=== PATIENT | male | born 1960 | race Caucasian/White ===

== ENCOUNTER 2019-02-19 09:59 | Emergency (ER) | payer OTHER, BC ==
[~2019-02-19] VITALS: Ht 172.7 cm; Wt 76.4 kg
[~2019-02-19 09:59] MED LIST: ASPI-1265 PO; FLO0.4C PO; OMEP40CA37 PO; TRAM50TA2 PO
[2019-02-19] MEDS ORDERED: LIDOcaine 1% 30ml preserv. free vial IJ ONE (11:35)
[2019-02-19 12:09] VITALS: BP 137/75
== END 2019-02-19 12:10 | disposition home or self-care (01) ==
LOC: ER 09:59
DX: S61.213A Laceration without foreign body of left middle finger without damage to nail, initial encounter (principal); Z85.46 Personal history of malignant neoplasm of prostate; Z98.890 Other specified postprocedural states; Z79.82 Long term (current) use of aspirin; Z79.899 Other long term (current) drug therapy; W26.8XXA Contact with other sharp object(s), not elsewhere classified, initial encounter; Y93.89 Activity, other specified; Y92.89 Other specified places as the place of occurrence of the external cause; Y99.8 Other external cause status
CPT/HCPCS: 12001; 99283; J3490

== ENCOUNTER 2021-01-12 15:16 | Inpatient (IN) | payer BC, MEDICAID, OTHER ==
[~2021-01-12] VITALS: Ht 172.7 cm; Wt 110.0 kg
[~2021-01-12 15:16] MED LIST changes: +OMEP40CA13 PO; -OMEP40CA37 PO
[2021-01-12] MEDS ORDERED: normal saline 1000ML IV soln IVB ONE (19:55)
--- NOTE | 2021-01-12 20:03 | NUR ---
pt to ct via wheelchair with electrical design engineer
[2021-01-12 20:37] LABS: BASOPHILS % (AUTO) 0.8 % (0-1); EOSINOPHILS # (AUTO) 0.1 X10'3 (0-0.9); HEMATOCRIT 48.5 % (42.0-52.0); HEMOGLOBIN 16.4 g/dl (14.0-17.9); LYMPHOCYTES # (AUTO) 1.4 X10'3 (1.1-4.8); LYMPHOCYTES % (AUTO) 24.9 % (21-51); MEAN CORPUSCULAR HEMOGLOBIN 34.7 PG (27.0-31.0); MEAN CORPUSCULAR HGB CONC 33.8 g/dL (33.0-36.5); MEAN CORPUSCULAR VOLUME 102.9 FL (78-98); MEAN PLATELET VOLUME 8.1 FL (7.4-10.4); MONOCYTES # (AUTO) 0.6 X10'3 (0-0.9); MONOCYTES % (AUTO) 10.4 % (2-12); NEUTROPHILS # (AUTO) 3.5 X10'3 (1.8-7.7); NEUTROPHILS % (AUTO) 61.9 % (42-75); PLATELET COUNT 198 X10'3 (140-440); RED BLOOD COUNT 4.71 X10'6 (4.70-6.10); RED CELL DISTRIBUTION WIDTH 16.3 % (11.5-14.5); WHITE BLOOD COUNT 5.7 X10'3 (4.5-11.0)
[2021-01-12 20:39] LABS: ALANINE AMINOTRANSFERASE 54 U/L (12-78); ALBUMIN 3.3 G/DL (3.4-5.0); ALBUMIN/GLOBULIN RATIO 0.8 (1.1-1.5); ALKALINE PHOSPHATASE 120 IU/L (46-116); ANION GAP 11 (8-16); ASPARTATE AMINO TRANSFERASE 90 U/L (10-37); BILIRUBIN,TOTAL 0.3 MG/DL (0.1-1.0); BLOOD UREA NITROGEN 9 MG/DL (7-18); BUN/CREATININE RATIO 9.6 (5.4-32.0); CALCIUM 8.8 MG/DL (8.5-10.1); CHLORIDE 101 MMOL/L (99-107); CREATININE 0.94 MG/DL (0.60-1.10); ETHANOL 0.134 GM/DL (0.0-0.010); GLUCOSE 81 MG/DL (70-104); POTASSIUM 4.6 MMOL/L (3.5-5.1); SODIUM 140 MMOL/L (135-145); TOTAL CARBON DIOXIDE 27.9 MMOL/L (24-32); TOTAL PROTEIN 7.7 G/DL (6.4-8.2); eGFR 82 ML/MIN
[2021-01-12 21:26] LABS: COLOR,URINE YELLOW (Yellow); GLUCOSE, URINE NEGATIVE (Neg); KETONES,URINE NEGATIVE (Neg); LEUKOCYTE ESTERASE ,URINE NEGATIVE (Neg); NITRITES, URINE POSITIVE (Neg); OCCULT BLOOD,URINE TRACE-INTACT (Neg); PROTEIN,URINE NEGATIVE (Neg)
[2021-01-12 21:29] LABS: CLARITY,URINE SLIGHTLY CLOUDY (Clear); UA COLLECTION TYPE URINAL
[2021-01-12 21:39] LABS: BACTERIA,URINE 2+ /HPF (Neg); RBC,URINE 0-2 /HPF (0-2); SQUAMOUS EPITHELIAL CELL,UR MODERATE /LPF (FEW); URINE AMPHETAMINE SCREEN NEGATIVE (Neg); URINE BARBITUATE SCREEN NEGATIVE (Neg); URINE BENZODIAZEPINES SCREEN NEGATIVE (Neg); URINE CANNABINOID SCREEN POSITIVE (Neg); URINE COCAINE SCREEN POSITIVE (Neg); URINE METHADONE SCREEN NEGATIVE (Neg); URINE OPIATE SCREEN NEGATIVE (Neg); URINE PHENCYCLIDINE SCREEN NEGATIVE (Neg)
[2021-01-12 21:40] LABS: HYALINE CASTS 0-3 /LPF (NEGATIVE); MUCUS STRANDS MANY /LPF (Neg)
--- NOTE | 2021-01-12 21:59 | NUR ---
AWAITING HOSPITALIST FOR ADMISSION. NEXT TROP (3 HR) DUE) [id number].
--- NOTE | 2021-01-12 22:00 | NUR ---
PT MOVED FROM BED 17 TO BED 14. ASSUMED CARE FROM VERONIQUE ROBLES.
[2021-01-12] MEDS ORDERED: aspirin 81mg tab.chew PO ONE (22:05)
[2021-01-12] MEDS ORDERED: thiamine 100mg tablet PO ONE (22:05)
[2021-01-12] MEDS: nitroGLYCERIN 0.4mg/hour patch TD ONE ×2 (22:05→23:16)
[2021-01-12] MEDS ORDERED: IBUP-24 PO (22:17)
--- NOTE | 2021-01-12 22:18 | NUR ---
Daughter, Gail at bedside
--- NOTE | 2021-01-12 23:13 | NUR ---
dr marie at bedside for admission. Pt is cooperative and social. Pt's daughter, Debra Mueller, left 45 min ago. She and Pt report that she is the primary contact and POA ([phone]). she request a call with any significant updates. 3 hr trop just drawn. bp 175/93.
--- NOTE | 2021-01-12 23:37 | NUR ---
PT REPORTS HE HAS NOT EATEN ALL DAY. GIVEN PITCHER OF ICE WATER AND OFFERES SNACKS. PT ONLY WANTED YOGURT. PT UPDATED THAT HE WILL NEED TO BE NPO SOON, FOR THE STRESS TEST IN THE AM. PT IS AGREEABLE TO THIS.
[2021-01-12] MEDS ORDERED: acetaminophen 325mg tablet PO PRN (23:40)
[2021-01-12] MEDS ORDERED: ondansetron/PF 4mg/2ml inj IV PRN (23:40)
[2021-01-12] MEDS ORDERED: potassium Cl 20 mEq SR tablet PO PRN ×2 (23:40)
[2021-01-12] MEDS ORDERED: mag hydrox/Alum hydrox/simeth 30ml oral suspension PO PRN (23:40)
[2021-01-12] MEDS ORDERED: potassium Cl 40MEQ/1/2NS 520ml 520 ML IV PRN ×2 (23:40)
[2021-01-12] MEDS ORDERED: magnesium hydroxide 30ml (MOM) UD suspension PO PRN (23:40)
[2021-01-12] MEDS ORDERED: CefTRIAXone/D5W-Rocephin 1gm 50 ML IV ONE (23:45)
[2021-01-12] MEDS ORDERED: metoprolol tartrate 50mg tablet PO ONE (23:45)
[2021-01-12] MEDS ORDERED: nitroGLYCERIN 0.4mg SUBLingual tab SL PRN (23:50)
[2021-01-12] MEDS ORDERED: aminophylline 250mg/10ml inj. IV PRN (23:50)
[2021-01-12] MEDS ORDERED: regadenoson 0.4mg/5ml syringe IV PRN (23:50)
[2021-01-12] MEDS ORDERED: metoprolol tartrate 1mg/ml inj IV PRN (23:50)
[2021-01-13] MEDS: LORazepam 2 mg/ml vial IV PRN ×5 (00:30→21:15)
[2021-01-13] MEDS: HYDROcodone/acetaminophen 5mg/325mg tablet PO PRN ×3 (00:31→20:58)
--- NOTE | 2021-01-13 01:48 | NUR ---
pt awakened to draw 6 hr trop. bp now 136/69, pt with no pain. awaiting ipa
[2021-01-13 01:52] LABS: BASOPHILS # (AUTO) 0.1 X10'3 (0-0.2); BASOPHILS % (AUTO) 0.9 % (0-1); EOSINOPHILS # (AUTO) 0.1 X10'3 (0-0.9); EOSINOPHILS % (AUTO) 1.7 % (0-6); HEMATOCRIT 44.8 % (42.0-52.0); HEMOGLOBIN 15.1 g/dl (14.0-17.9); LYMPHOCYTES # (AUTO) 1.1 X10'3 (1.1-4.8); LYMPHOCYTES % (AUTO) 18.3 % (21-51); MEAN CORPUSCULAR HEMOGLOBIN 34.6 PG (27.0-31.0); MEAN CORPUSCULAR HGB CONC 33.6 g/dL (33.0-36.5); MEAN CORPUSCULAR VOLUME 102.9 FL (78-98); MEAN PLATELET VOLUME 7.6 FL (7.4-10.4); MONOCYTES # (AUTO) 0.6 X10'3 (0-0.9); MONOCYTES % (AUTO) 10.6 % (2-12); NEUTROPHILS # (AUTO) 4.1 X10'3 (1.8-7.7); NEUTROPHILS % (AUTO) 68.5 % (42-75); PLATELET COUNT 173 X10'3 (140-440); RED BLOOD COUNT 4.35 X10'6 (4.70-6.10)
[2021-01-13 02:11] LABS: ALANINE AMINOTRANSFERASE 47 U/L (12-78); ALBUMIN/GLOBULIN RATIO 0.8 (1.1-1.5); ALKALINE PHOSPHATASE 108 IU/L (46-116); ANION GAP 10 (8-16); ASPARTATE AMINO TRANSFERASE 77 U/L (10-37); BILIRUBIN,TOTAL 0.4 MG/DL (0.1-1.0); BLOOD UREA NITROGEN 9 MG/DL (7-18); BUN/CREATININE RATIO 10.1 (5.4-32.0); CALCIUM 8.7 MG/DL (8.5-10.1); CHLORIDE 102 MMOL/L (99-107); CREATININE 0.89 MG/DL (0.60-1.10); GLUCOSE 75 MG/DL (70-104); POTASSIUM 4.4 MMOL/L (3.5-5.1); SODIUM 140 MMOL/L (135-145); TOTAL CARBON DIOXIDE 27.8 MMOL/L (24-32); TOTAL PROTEIN 6.9 G/DL (6.4-8.2); eGFR 88 ML/MIN
--- NOTE | 2021-01-13 05:03 | NUR ---
pt awake and ambulating to br with steady gait. reports dizziness upon sitting up and sat at edge of bed for a min prior to walking to br. given norco for back piani and ativan for anxiety. vss.
[2021-01-13] MEDS: K and/or MAG REPLACEMENT MC SCH ×2 (08:00→20:00)
[2021-01-13] MEDS: CefTRIAXone/D5W-Rocephin 1gm 50 ML IV SCH (08:31)
[2021-01-13] MEDS: heparin, porcine 5000 units/ml vial SQ SCH ×2 (08:43→20:57)
[2021-01-13] MEDS: pantoprazole 40mg Tablet.DR PO SCH (08:53)
--- NOTE | 2021-01-13 09:02 | NUR ---
Received patient report from ED RN. Awaiting patient arrival to room 3012B.
--- NOTE | 2021-01-13 09:22 | NUR ---
Patient arrived to room 3012B via gurney and ambulated from the gurney to the bed. Patient vital signs are HR 64, RR 16, BP 149/79, 98% on room air, temp 97.1F. Bed locked and lowered, nonskid socks on, call light in reach, and in no acute distress.
[2021-01-13 09:25] VITALS: BP 149/79
--- NOTE | 2021-01-13 09:37 | NUR ---
Orders for an echocardiogram put in per Dr. Samaniego.
--- NOTE | 2021-01-13 09:38 | NUR ---
Paged EEG group pager to let them know that EEG was ordered for patient. Addendum: 01/13/21 at 1019 by Maxine Rowe RN risk tech Janay called back and said that she won't be able to get to this patient until tomorrow.
--- NOTE | 2021-01-13 10:21 | NUR ---
Paged Dr. Samaniego regarding the alternative energy technician calling and asked if he would like for me to cancel the lexiscan. PAGER ID: [phone] MESSAGE: [phone]. Mukesh Lua. alternative energy technician called and said that she won't be able to do the EEG today. Would you still like for me to cancel the bret? Thank you. Maxine PIPER [phone] Addendum: 01/13/21 at 1023 by Maxine Rowe RN Dr. Samaniego was on the floor and said to cancel the lexiscan and stress test.
[2021-01-13 11:00] VITALS: BP 144/69
--- NOTE | 2021-01-13 13:00 | NUR ---
Patient down at MRI
--- NOTE | 2021-01-13 13:32 | NUR ---
Patient back from MRI.
[2021-01-13 15:00] VITALS: BP 124/84
--- NOTE | 2021-01-13 18:16 | NUR ---
Problems reprioritized. Patient report given, questions answered & plan of care reviewed with VERONIQUE Vo. Patient stable at transfer of care.
[2021-01-13 19:00] VITALS: BP 141/85
--- NOTE | 2021-01-13 19:02 | NUR ---
I have received report from Maxine PIPER and had the opportunity to ask questions and assume patient care.
[2021-01-13] MEDS: lactobacillus rhamnosus 10,000 MMU CELLS/CAPSULE PO SCH (20:57)
[2021-01-13 22:00] VITALS: BP 132/84
[2021-01-14 02:02] VITALS: BP 150/74
--- NOTE | 2021-01-14 06:13 | NUR ---
Problems reprioritized. Patient report given, questions answered & plan of care reviewed with Maxine PIPER.
--- NOTE | 2021-01-14 06:36 | NUR ---
Patient in room PCU 3012. I have received report from VERONIQUE Vo and had the opportunity to ask questions and assume patient care. patient asleep in bed and in no acute distress.
[2021-01-14 07:00] VITALS: BP 142/69
[2021-01-14] MEDS: pantoprazole 40mg Tablet.DR PO SCH (07:30)
[2021-01-14 07:45] LABS: BASOPHILS # (AUTO) 0.1 X10'3 (0-0.2); EOSINOPHILS # (AUTO) 0.1 X10'3 (0-0.9); EOSINOPHILS % (AUTO) 2.8 % (0-6); HEMATOCRIT 42.6 % (42.0-52.0); HEMOGLOBIN 14.3 g/dl (14.0-17.9); LYMPHOCYTES # (AUTO) 0.9 X10'3 (1.1-4.8); LYMPHOCYTES % (AUTO) 17.2 % (21-51); MEAN CORPUSCULAR HEMOGLOBIN 34.5 PG (27.0-31.0); MEAN CORPUSCULAR HGB CONC 33.6 g/dL (33.0-36.5); MEAN CORPUSCULAR VOLUME 102.6 FL (78-98); MEAN PLATELET VOLUME 8.3 FL (7.4-10.4); MONOCYTES # (AUTO) 0.7 X10'3 (0-0.9); NEUTROPHILS # (AUTO) 3.5 X10'3 (1.8-7.7); PLATELET COUNT 177 X10'3 (140-440); RED BLOOD COUNT 4.15 X10'6 (4.70-6.10); RED CELL DISTRIBUTION WIDTH 15.7 % (11.5-14.5); WHITE BLOOD COUNT 5.3 X10'3 (4.5-11.0)
[2021-01-14 07:56] LABS: ALANINE AMINOTRANSFERASE 38 U/L (12-78); ALBUMIN 2.8 G/DL (3.4-5.0); ALBUMIN/GLOBULIN RATIO 0.7 (1.1-1.5); ALKALINE PHOSPHATASE 93 IU/L (46-116); ANION GAP 9 (8-16); ASPARTATE AMINO TRANSFERASE 47 U/L (10-37); BILIRUBIN,TOTAL 0.5 MG/DL (0.1-1.0); BLOOD UREA NITROGEN 19 MG/DL (7-18); BUN/CREATININE RATIO 21.1 (5.4-32.0); CALCIUM 9.2 MG/DL (8.5-10.1); CHLORIDE 102 MMOL/L (99-107); GLUCOSE 87 MG/DL (70-104); SODIUM 140 MMOL/L (135-145); TOTAL CARBON DIOXIDE 29.3 MMOL/L (24-32); TOTAL PROTEIN 6.7 G/DL (6.4-8.2); eGFR 87 ML/MIN
[2021-01-14] MEDS: heparin, porcine 5000 units/ml vial SQ SCH ×2 (08:00→20:53)
[2021-01-14] MEDS: lactobacillus rhamnosus 10,000 MMU CELLS/CAPSULE PO SCH ×2 (08:00→20:52)
[2021-01-14] MEDS: K and/or MAG REPLACEMENT MC SCH ×2 (08:00→20:00)
[2021-01-14 08:03] LABS: POTASSIUM 4.4 MMOL/L (3.5-5.1)
[2021-01-14] MEDS ORDERED: iohexol 350MG/ML 100ml bottle IV ONE (08:58)
--- NOTE | 2021-01-14 09:15 | NUR ---
Patient going down for CTA
--- NOTE | 2021-01-14 09:30 | NUR ---
Patient back from CTA.
[2021-01-14] MEDS: CefTRIAXone/D5W-Rocephin 1gm 50 ML IV SCH (09:59)
--- NOTE | 2021-01-14 10:48 | NUR ---
Orders for teleneuro consult put in per Dr. Samaniego.
[2021-01-14 11:00] VITALS: BP 146/87
[2021-01-14 15:00] VITALS: BP 139/86
--- NOTE | 2021-01-14 15:05 | NUR ---
Patient talking to teleneurologist.
[2021-01-14] MEDS: HYDROcodone/acetaminophen 5mg/325mg tablet PO PRN ×2 (15:16→23:12)
[2021-01-14] MEDS ORDERED: nitroGLYCERIN 0.4mg SUBLingual tab SL PRN (15:45)
[2021-01-14] MEDS ORDERED: regadenoson 0.4mg/5ml syringe IV ONE (15:45)
[2021-01-14] MEDS ORDERED: aminophylline 250mg/10ml inj. IV PRN (15:45)
[2021-01-14] MEDS ORDERED: metoprolol tartrate 1mg/ml inj IV PRN (15:45)
--- NOTE | 2021-01-14 18:22 | NUR ---
Problems reprioritized. Patient report given, questions answered & plan of care reviewed with Alaina RN. Patient stable at transfer of care.
[2021-01-14 19:00] VITALS: BP 145/91
--- NOTE | 2021-01-14 19:00 | NUR ---
pt reports pain level at 7; states he'll call when PRN analgesic is needed Addendum: 01/15/21 at 0153 by Debra Hinkle RN Amended: Links added.
[2021-01-14 23:00] VITALS: BP 142/81
[2021-01-14] MEDS: LORazepam 2 mg/ml vial IV PRN (23:12)
[2021-01-14] MEDS ORDERED: LORazepam 1 MG tablet PO PRN (23:50)
[2021-01-14] MEDS ORDERED: LORazepam 2 mg/ml vial IV PRN (23:50)
[2021-01-15] VITALS (12 sets, daily range): BP systolic 134–164; BP diastolic 67–87
[2021-01-15 06:46] LABS: BASOPHILS % (AUTO) 0.8 % (0-1); EOSINOPHILS # (AUTO) 0.1 X10'3 (0-0.9); EOSINOPHILS % (AUTO) 2.5 % (0-6); HEMATOCRIT 41.5 % (42.0-52.0); HEMOGLOBIN 14.3 g/dl (14.0-17.9); LYMPHOCYTES # (AUTO) 1.2 X10'3 (1.1-4.8); MEAN CORPUSCULAR HEMOGLOBIN 35.9 PG (27.0-31.0); MEAN CORPUSCULAR HGB CONC 34.5 g/dL (33.0-36.5); MEAN PLATELET VOLUME 8.2 FL (7.4-10.4); MONOCYTES # (AUTO) 0.8 X10'3 (0-0.9); MONOCYTES % (AUTO) 14.8 % (2-12); NEUTROPHILS # (AUTO) 3.5 X10'3 (1.8-7.7); NEUTROPHILS % (AUTO) 60.9 % (42-75); PLATELET COUNT 187 X10'3 (140-440); RED BLOOD COUNT 3.99 X10'6 (4.70-6.10); RED CELL DISTRIBUTION WIDTH 15.5 % (11.5-14.5); WHITE BLOOD COUNT 5.7 X10'3 (4.5-11.0)
--- NOTE | 2021-01-15 06:55 | NUR ---
Patient in room PCU 3012. I have received report from Alaina RN and had the opportunity to ask questions and assume patient care.
[2021-01-15 07:01] LABS: ALANINE AMINOTRANSFERASE 40 U/L (12-78); ALBUMIN 2.7 G/DL (3.4-5.0); ALBUMIN/GLOBULIN RATIO 0.7 (1.1-1.5); ALKALINE PHOSPHATASE 88 IU/L (46-116); ANION GAP 7 (8-16); ASPARTATE AMINO TRANSFERASE 41 U/L (10-37); BILIRUBIN,TOTAL 0.5 MG/DL (0.1-1.0); BLOOD UREA NITROGEN 18 MG/DL (7-18); CALCIUM 8.9 MG/DL (8.5-10.1); CHLORIDE 102 MMOL/L (99-107); GLUCOSE 91 MG/DL (70-104); SODIUM 140 MMOL/L (135-145); TOTAL CARBON DIOXIDE 30.9 MMOL/L (24-32); TOTAL PROTEIN 6.6 G/DL (6.4-8.2); eGFR 87 ML/MIN
[2021-01-15] MEDS: K and/or MAG REPLACEMENT MC SCH (08:00)
[2021-01-15] MEDS: pantoprazole 40mg Tablet.DR PO SCH (08:09)
[2021-01-15] MEDS: lactobacillus rhamnosus 10,000 MMU CELLS/CAPSULE PO SCH (08:09)
[2021-01-15] MEDS: heparin, porcine 5000 units/ml vial SQ SCH (08:10)
[2021-01-15] MEDS: CefTRIAXone/D5W-Rocephin 1gm 50 ML IV SCH (08:11)
--- NOTE | 2021-01-15 12:43 | NUR ---
PAGER ID: [phone] MESSAGE: RE: Mukesh Lua, Room 3012B Pt's LexiScan has resulted. May I return pt to his diet? Thank you, Vanessa [phone]
[2021-01-15] MEDS ORDERED: CIPR-202 PO (12:48)
--- NOTE | 2021-01-15 17:45 | NUR ---
Pt stable and appropriate for d/c. PIV d/c'd cannula intact. Tele removed. Reviewed with pt all d/c instructions and meds with pt given opportunity to ask questions, answers provided and pt verbalizing understanding. Prescription escripted to pharmacy of choice. Pt to call PCP to schedule followup appt within one week. Pt to call MD with any questions/concerns or worsening symptoms or return to nearest ED. Pt escorted to front lobby by hospital staff member, stating he had all personal belongings and driven home in private vehicle driven by family member.
[2021-01-16] MEDS ORDERED: LORazepam 1 MG tablet PO PRN (23:50)
== END 2021-01-15 18:00 | disposition home or self-care (01) | DRG 204 ==
LOC: ER 15:17 → ED HOLD 23:37 → PCU 3S 01-13 09:22
PROVIDERS: ADMIT Internal Medicine; ATTEND Family Medicine
PROC: 4A02XM4 Measurement of Cardiac Total Activity, External Approach (ICD-10-PCS; principal; 2021-01-15)
PROC: 3E073KZ Introduction of Other Diagnostic Substance into Coronary Artery, Percutaneous Approach (ICD-10-PCS; 2021-01-15)
DX: R55 Syncope and collapse (principal); E86.0 Dehydration; N39.0 Urinary tract infection, site not specified; F10.11 Alcohol abuse, in remission; F14.90 Cocaine use, unspecified, uncomplicated; F17.200 Nicotine dependence, unspecified, uncomplicated; K21.9 Gastro-esophageal reflux disease without esophagitis; R77.8 Other specified abnormalities of plasma proteins; G89.29 Other chronic pain; M54.9 Dorsalgia, unspecified; Z86.73 Personal history of transient ischemic attack (TIA), and cerebral infarction without residual deficits; Z85.46 Personal history of malignant neoplasm of prostate; Z79.899 Other long term (current) drug therapy; Z79.82 Long term (current) use of aspirin
CPT/HCPCS: 36415; 70450; 70551; 71045; 71275; 78452; 80053; 80305; 80320; 81001; 82948; 83880; 84484; 85025; 87081; 87088; 87186; 93005; 93017; 93306; 95816; 99285; A9500; G0378; J0696; J1644; J2060; J2785; J7030; Q9967